=== PATIENT | male | born 1970 | race Caucasian/White ===

== ENCOUNTER 2018-05-21 18:26 | Observation (INO) | payer SELFPAY ==
--- NOTE | 2018-05-21 18:37 | EDPHY ---
H & P Time Seen by Provider: 05/21/18 18:28 HPI/ROS: HPI: This is a 47-year-old male who presents with Chief Complaint: Right finger infection Location: Right pointer finger Quality: Infection Duration: 1 week Signs and Symptoms: No bleeding, no radiation, no numbness, no weakness, no tingling, no incontinence, + decreased range of motion, + swelling, + pain, no fever Timing: Worsening Severity: Moderate Context: Patient is right-hand dominant, presents via EMS, with complaints of worsening over the last 1 week of right pointer finger infection. He reports that he accidentally cut his finger 1 week ago while closing his personal knife. The area started to bleed but then stopped with direct pressure. He is a transient. Allergy to penicillin. Tetanus booster per patient updated in 2013. He complains of warmth, swelling, decreased range of motion. He reports pain with flexion and extension of his right pointer finger. Denies fever/ paresthesias/weakness. No health insurance and no primary care provider. No history of diabetes mellitus. Modifying Factors: None Comment: ROS: A comprehensive 10 system review of systems is otherwise negative aside from elements mentioned in the history of present illness. MEDICAL/SURGICAL/SOCIAL HISTORY: Medical history: Generally healthy. Does not take any regular medications. Surgical history: Denies Social history: Transient. Smoker. CONSTITUTIONAL: Mild distress, untidy, middle-aged white male, awake and alert HEENT: Atraumatic and normocephalic. NECK: supple EXTREMITIES: 2/2 pulses, strength 5/5, right pointer finger at the MCP joint shows fluctuant area with pointing with moderate erythema and warmth and induration. Active and passive Pain with flexion. No streaking. DIP/PIP/MCP flexion/extension intact with good light touch sensation. no deformities, no clubbing, no cyanosis or edema. NEUROLOGICAL: no focal neuro deficits. GCS 15. Light touch sensation intact. SKIN: Warm and dry, no erythema. no rash. Good capillary refill. Source: Patient, EMS Exam Limitations: No limitations Constitutional: Initial Vital Signs Temperature (C) 36.8 C 05/21/18 18:32 Heart Rate 70 05/21/18 18:32 Respiratory Rate 16 05/21/18 18:32 Blood Pressure 154/96 H 05/21/18 18:32 O2 Sat (%) 100 05/21/18 18:32 O2 Delivery Mode Room Air Allergies/Adverse Reactions: Penicillins Allergy (Verified 05/21/18 18:34) Medical Decision Making - Diagnostics Imaging Results: Imaging Impressions Hand X-Ray 05/21/18 18:32 Impression: 1. No evidence of osteomyelitis or infected 2nd metacarpophalangeal joint space. 2. Tiny radiopaque wire in 3rd finger. Findings discussed with Emergency Department Physician Early Years Teacher, BOB Sofia, on May 21, 2018 at 1908. Procedures: Procedure: Abscess drainage. Local anesthesia was provided by Dr. Blood. The patient's abscess was located on the right index finger MCP joint. I obtained verbal consent from the patient to drain the abscess who was informed about the possibility of bleeding and pain. The abscess was incised with 11 Scalpel and a 3 mL amount of purulent drainage was expressed. I irrigated the wound and placed clean sterile dressing. The patient tolerated the procedure well. The procedure was performed by myself. ED Course/Re-evaluation: Vital signs reviewed and stable upon arrival. No systemic signs. IV access and laboratory studies ordered along with right hand x-ray local anesthesia provided by Dr. Blood with 3 mL purulent discharge but no culture sent I and D performed by myself at bedside. scant purulent drainage expressed-not enough to culture. Irrigated copiously and clean sterile dressing applied. Not able to place packing. 1858: Right hand x-ray reviewed via PACs shows right index finger soft tissue swelling but no foreign body, fracture. 1912: Labs reviewed. WBC 14 K with left shift, ESR within normal limits, CRP 16. Given IV Ancef 2 g Patient is a transient has no insurance. Would be best to admit patient for IV antibiotics overnight. 1914: ED decision to consult hospitalist for admission for continued IV antibiotics. Spoke with Dr. Courtney kindly agrees to admit patient to provide further care including IV antibiotics. I do not believe that patient will need to go to the OR for washout at this time. No signs of neurovascular compromise/tenting of skin/compartment syndrome/ extremities and joints examined above and below area of concern and are neurovascularly intact. This patient was seen under the supervision of my secondary supervising physician. I evaluated care for this patient independently. Discussed this patient with Dr. Blood. Differential Diagnosis: Differential diagnosis includes but is not limited to cellulitis, abscess, tenosynovitis, septic arthritis. - Data Points Laboratory Results: Laboratory Results 05/21/18 18:41 18 18:41 18 1118 18:41 18:41 WBC 13.93 10^3/uL H 10^3/uL (3.80-9.50) RBC 4.33 10^6/uL L 10^6/uL (4.40-6.38) Hgb 13.5 g/dL L g/dL (13.7-17.5) Hct 40.2 % % (40.0-51.0) MCV 92.8 fL fL (81.5-99.8) MCH 31.2 pg pg (27.9-34.1) MCHC 33.6 g/dL g/dL (32.4-36.7) RDW 12.8 % % (11.5-15.2) Plt Count 301 10^3/uL 10^3/uL (150-400) MPV 9.8 fL fL (8.7-11.7) Neut % (Auto) 74.9 % H % (39.3-74.2) Lymph % (Auto) 14.4 % L % (15.0-45.0) [place] % (Auto) 7.9 % % (4.5-13.0) Eos % (Auto) 2.1 % % (0.6-7.6) Baso % (Auto) 0.4 % % (0.3-1.7) Nucleat RBC Rel Count 0.0 % % (0.0-0.2) Absolute Neuts (auto) 10.44 10^3/uL H 10^3/uL (1.70-6.50) Absolute Lymphs (auto) 2.00 10^3/uL 10^3/uL (1.00-3.00) Absolute Monos (auto) 1.10 10^3/uL H 10^3/uL (0.30-0.80) Absolute Eos (auto) 0.29 10^3/uL 10^3/uL (0.03-0.40) Absolute Basos (auto) 0.06 10^3/uL 10^3/uL (0.02-0.10) Absolute Nucleated RBC 0.00 10^3/uL 10^3/uL (0-0.01) Immature Gran % 0.3 % % (0.0-1.1) Immature Gran # 0.04 10^3/uL 10^3/uL (0.00-0.10) ESR 8 MM/HR MM/HR (0-15) Sodium 139 mEq/L mEq/L (135-145) Potassium 4.2 mEq/L mEq/L (3.3-5.0) Chloride 107 mEq/L mEq/L (97-110) Carbon Dioxide 22 mEq/l mEq/l (22-31) Anion Gap 10 mEq/L mEq/L (6-14) BUN 18 mg/dL mg/dL (7-23) Creatinine 0.8 mg/dL mg/dL (0.7-1.3) Estimated GFR > 60 Glucose 125 mg/dL H mg/dL (70-100) Calcium 9.2 mg/dL mg/dL (8.5-10.4) C-Reactive Protein 15.9 mg/L H mg/L (<10.0) Departure - Departure Disposition: [facility] Inpatient Acute Clinical Impression: Cellulitis of right index finger, Cellulitis of right hand, Abscess of right index finger Condition: Fair
[2018-05-21 18:52] LABS: PLATELET COUNT 301 10^3/uL (150-400)
[2018-05-21] MEDS ORDERED: ceFAZolin 2 GM/DEXTROSE 100 ML IV ONE (19:16)
[2018-05-21] MEDS ORDERED: ACETAMINOPHEN 325 MG TAB PO PRN (19:26)
[2018-05-21] MEDS ORDERED: ONDANSETRON DISINTEGRATING 4 MG TAB PO PRN (19:26)
[2018-05-21] MEDS ORDERED: PROMETHAZINE HCL 25 MG/ML INJ IVP PRN (19:26)
[2018-05-21] MEDS ORDERED: HYDROCODONE/APAP 5/325 TAB PO PRN (19:26)
[2018-05-21] MEDS ORDERED: oxyCODONE IR 5 MG TAB PO PRN (19:26)
[2018-05-21] MEDS ORDERED: ONDANSETRON 4 MG/2 ML VIAL IVP PRN (19:26)
[2018-05-21] MEDS ORDERED: HYDROmorphONE/DILAUDID 1 MG/ML INJ IVP PRN (19:26)
--- NOTE | 2018-05-21 19:52 | PDGENHP ---
History and Physical - Chief Complaint finger pain - History of Present Illness 47 yo M with PMH of IVDA presenting with a complaint of right first finger pain and swelling. He notes he cut his finger last week on a 'clean knife' and at first there were no issues, but since yesterday the finger became more painful and swollen. He notes he also had some issues with mobility in the finger and hand. He has not had any streaking redness, has not had fevers that he is aware of but has had chills. He notes that he does use IV meth, but not for the last several days and states that he always uses clean needles and denies prior issues with abscesses or skin infections. History Information - Allergies/Home Medication List Allergies/Adverse Reactions: Penicillins Allergy (Verified 05/21/18 18:34) Home Medications: NK [No Known Home Meds] 05/21/18 [Last Taken Unknown] I have personally reviewed and updated: family history, medical history, social history, surgical history - Past Medical History Additional medical history: IVDA--methamphetamine - Surgical History Reports: spinal surgery - Family History Positive for: non-pertinent - Social History Smoking Status: Current every day smoker Alcohol Use: None Drug Use: Other (methamphetamine IVDA) Additional social history: originally from [place], has 5 children who live in [facility] Review of Systems Review of Systems: ROS: 10pt was reviewed & negative except for what was stated in HPI & below Physical Exam Physical Exam: Temp Pulse Resp BP Pulse Ox 36.8 C 70 16 154/96 H 100 05/21/18 18:32 05/21/18 18:32 05/21/18 18:32 05/21/18 18:32 05/21/18 18:32 Constitutional: no apparent distress, unkempt Eyes: PERRL, anicteric sclera Ears, Nose, Mouth, Throat: moist mucous membranes, hearing normal Cardiovascular: regular rate and rhythym, no murmur, rub, or gallop, No edema Respiratory: no respiratory distress, no rales or rhonchi Gastrointestinal: normoactive bowel sounds, soft, non-tender abdomen Genitourinary: no bladder tenderness Skin: warm, erythema, other (right MCP s/p I&D with surrounding erythema, no fluctuance) Musculoskeletal: full muscle strength, normal joint ROM Neurologic: AAOx3 Psychiatric: interacting appropriately, not anxious, not encephalopathic Lab Data & Imaging Review 18 18:41 11 18:41 WBC 13.93 10^3/uL (3.80-9.50) H 05/21/18 18:41 RBC 4.33 10^6/uL (4.40-6.38) L 05/21/18 18:41 Hgb 13.5 g/dL (13.7-17.5) L 05/21/18 18:41 Hct 40.2 % (40.0-51.0) 05/21/18 18:41 MCV 92.8 fL (81.5-99.8) 05/21/18 18:41 MCH 31.2 pg (27.9-34.1) 05/21/18 18:41 MCHC 33.6 g/dL (32.4-36.7) 05/21/18 18:41 RDW 12.8 % (11.5-15.2) 05/21/18 18:41 Plt Count 301 10^3/uL (150-400) 05/21/18 18:41 MPV 9.8 fL (8.7-11.7) 05/21/18 18:41 Neut % (Auto) 74.9 % (39.3-74.2) H 05/21/18 18:41 Lymph % (Auto) 14.4 % (15.0-45.0) L 05/21/18 18:41 [place] % (Auto) 7.9 % (4.5-13.0) 05/21/18 18:41 Eos % (Auto) 2.1 % (0.6-7.6) 05/21/18 18:41 Baso % (Auto) 0.4 % (0.3-1.7) 05/21/18 18:41 Nucleat RBC Rel Count 0.0 % (0.0-0.2) 05/21/18 18:41 Absolute Neuts (auto) 10.44 10^3/uL (1.70-6.50) H 05/21/18 18:41 Absolute Lymphs (auto) 2.00 10^3/uL (1.00-3.00) 05/21/18 18:41 Absolute Monos (auto) 1.10 10^3/uL (0.30-0.80) H 05/21/18 18:41 Absolute Eos (auto) 0.29 10^3/uL (0.03-0.40) 05/21/18 18:41 Absolute Basos (auto) 0.06 10^3/uL (0.02-0.10) 05/21/18 18:41 Absolute Nucleated RBC 0.00 10^3/uL (0-0.01) 05/21/18 18:41 Immature Gran % 0.3 % (0.0-1.1) 05/21/18 18:41 Immature Gran # 0.04 10^3/uL (0.00-0.10) 05/21/18 18:41 ESR 8 MM/HR (0-15) 05/21/18 18:41 Sodium 139 mEq/L (135-145) 05/21/18 18:41 Potassium 4.2 mEq/L (3.3-5.0) 05/21/18 18:41 Chloride 107 mEq/L (97-110) 05/21/18 18:41 Carbon Dioxide 22 mEq/l (22-31) 05/21/18 18:41 Anion Gap 10 mEq/L (6-14) 05/21/18 18:41 BUN 18 mg/dL (7-23) 05/21/18 18:41 Creatinine 0.8 mg/dL (0.7-1.3) 18 18:41 Estimated GFR > 60 05/21/18 18:41 Glucose 125 mg/dL (70-100) H 05/21/18 18:41 Calcium 9.2 mg/dL (8.5-10.4) 05/21/18 18:41 C-Reactive Protein 15.9 mg/L (<10.0) H 05/21/18 18:41 Visualized and Interpreted imaging results: Yes Interpretation: hand xray: no osteo or other acute findings Assessment & Plan Assessment: Cellulitis of right index finger (Acute) Cellulitis of right hand (Acute) Abscess of right index finger (Acute) 47 yo M with PMH of IVDA presenting with finger abscess/cellulitis # right 2nd digit cellulitis/abscess: s/p I&D in ER with 3ml of purulent material extracted but unfortunately not sent for culture. Started on ancef empirically, does appear that the abscess has been appropriately drained and overall the surrounding cellulitis is mild. Will monitor overnight, so long as continues to improve as expected could dc in the am on oral abx. Given purulence would likely discharge on short course of keflex/doxy for coverage of possible MRSA. If erythema increases overnight would need to consider ID versus ortho consultation. # IVDA: patient adamant that he only uses clean needles and has not had prior issues with infection, as above # leukocytosis: in setting of abscess/cellulitis as above, patient not septic # nicotine dependence: will order patch/gum # observation status Patient new to my care. Old records reviewed and summarized as above. Care plan reviewed with ER doctor as above.
[2018-05-22] MEDS ORDERED: NICOTINE POLACRILEX 2 MG GUM B PRN (01:07)
[2018-05-22] MEDS: ceFAZolin 2 GM/DEXTROSE 100 ML IV SCH ×2 (04:31→12:08)
[2018-05-22 12:31] VITALS: BP 137/83
--- NOTE | 2018-05-22 12:37 | ASMTCMCOM ---
CM Note CM Note Notes: Pt has been admitted for R finger abscess. He is s/p I&D in the ED. He has a hx of IV drug abuse (meth). He is currently on IV ABX but is expected to transition to po ABX at d/c. Pt is self pay, referred to [facility] for assessment for Medicaid. Anticipate d/c with no CM needs but we will continue to follow for any change in needs. D/C plan: Anticipate Home Indpendent Date Signed: 05/22/2018 12:36 PM Electronically Signed By:NAYA Horne
--- NOTE | 2018-05-22 13:50 | ASMTLACE ---
HETALE Length of stay for Answers: 2 days current admission Acuity / Level of Answers: No Care: Did the patient have an inpatient admission? # of Emergency department Answers: 1-2 visits in the last 6 months Social determinants Answers: History of substance abuse (ETOH, street drugs, prescription drugs, etc.) Score: 6 Date Signed: 05/22/2018 01:49 PM Electronically Signed By:Jena Boswell RN
--- NOTE | 2018-05-22 13:54 | ASMTDCNOTE ---
Case Management Discharge Discharge Order Complete? Answers: Yes Patient to Obtain Answers: Other Notes: [facility] Assistance Medications Program Case Management Transport Answers: No Form Complete Faxed Final Orders Answers: No Family Notified Answers: No Discharge Comments Notes: Pt will discharge home independently today. Transitioned to orgal meds, new scripts sent to [facility] medication assistance program. D/W RN. CM available for any further needs. Date Signed: 05/22/2018 01:52 PM Electronically Signed By:Jena Boswell RN
--- NOTE | 2018-05-22 14:48 | GDS ---
DISCHARGE DIAGNOSIS: 1. Right index finger abscess. 2. Leukocytosis. 3. Intravenous drug user. 4. Nicotine dependence. HISTORY OF PRESENT ILLNESS: A 47-year-old male with a history of IV drug use, tobacco dependence, presenting with right 1st finger pain, swelling. He cut his finger last week on a clean knife, and there were no issues. Yesterday, finger became more painful and swollen and noted he had some issues with mobility. Denies any fevers, chills, or sweats. Notes he does use IV meth, but not for several days and always uses clean needles. HOSPITAL COURSE BY PROBLEM: 1. First right finger abscess/cellulitis: X-ray negative for osteomyelitis. It was incision and drained in the emergency room. Looks clean, without evidence of cellulitis today. He was initially treated with Ancef. He was transitioned to doxycycline for 5 days to cover for MRSA. 2. Tobacco dependence. He was counseled on cessation. 3. IV drug use: Again, counseled on cessation. DISPOSITION: Patient is stable for discharge. NEW MEDICATIONS: Doxycycline for 5 days. PHYSICAL EXAMINATION: VITAL SIGNS: Today, temperature 36.6, blood pressure 136 /83, heart rate in the 80s, respirations 18, 93% on room air. GENERAL: He is disheveled, in no acute distress. HEENT: Poor dentition. Moist mucous membranes. CV: Regular rate and rhythm. No murmurs, gallops, or rubs. LUNGS : Clear. ABDOMEN: Soft, nontender, nondistended, with positive bowel sounds. : No [place]. MUSCULOSKELETAL: Right 1st index finger knuckle with clean, open incision. No surrounding erythema. Minimal drainage. Good pulse. PSYCH : Alert and oriented x3. Time spent on discharge: Greater than 30 minutes at bedside with patient explaining dressings, medications, and followup plan. /[id number]/MODL MTDD
== END 2018-05-22 15:38 | disposition home or self-care (01) ==
LOC: F1N 21:29
PROVIDERS: ADMIT Internal Medicine; ATTEND Internal Medicine
PROC: 0J9J0ZZ Drainage of Right Hand Subcutaneous Tissue and Fascia, Open Approach (ICD-10-PCS; principal; 2018-05-21)
DX: L03.011 Cellulitis of right finger (principal); S61.210S Laceration without foreign body of right index finger without damage to nail, sequela; W26.0XXS Contact with knife, sequela; F15.10 Other stimulant abuse, uncomplicated; F17.210 Nicotine dependence, cigarettes, uncomplicated; Z88.0 Allergy status to penicillin; D72.829 Elevated white blood cell count, unspecified
CPT/HCPCS: G0378; J0690